=== PATIENT | male | born 1965 | race Caucasian/White ===

== ENCOUNTER 2018-08-28 21:47 | Inpatient (IN) ==
[2018-08-28] MEDS ORDERED: NS 1,000 ML IV ONE (21:51)
[2018-08-28] MEDS ORDERED: MORPHINE IV ONE ×2 (21:51→22:29)
[2018-08-28] MEDS ORDERED: ZOFRAN IV ONE (21:51)
[2018-08-28] MEDS ORDERED: NS 1,000 ML ONE (21:53)
[2018-08-28 22:04] LABS: BASO# 0.02 X1000 (0.0-0.2); BASO% 0.1 % (0.0-0.8); EOS# 0.03 X1000 (0.0-0.7); EOS% 0.2 % (0.0-10.0); HEMATOCRIT 41.8 % (42.0-52.0); IMM GRAN# 0.03 X1000 (0.0-0.04); IMM GRAN% 0.2 % (0.0-0.5); LYMPH# 1.53 X1000 (1.2-3.4); MCH 28.6 PG (27-31); MCHC 33.5 g/dL (33-37); MCV 85.5 FL (81-99); MONO% 5.9 % (1.7-9.3); MPV 9.8 FL (7.4-10.4); NEUT# 12.73 X1000 (1.4-6.5); NEUT% 83.6 % (42.2-75.2); PLT 330 X1000 (130-400); RBC 4.89 XMIL (4.7-6.1); RDW 12.9 % (11.5-14.5); WBC 15.24 X1000 (4.8-10.8)
--- NOTE | 2018-08-28 22:28 | Diag Imaging Result Doc PS360 ---
EXAM: CT THORAX/ABD/PELVIS W/CON HISTORY: abdominal pain, no BM for 3 weeks, severly distend TECHNIQUE: 1. CT chest with intravenous contrast 2. CT abdomen and pelvis with intravenous contrast COMPARISON: None. FINDINGS: Chest: No pleural effusions. No thoracic aortic aneurysm or dissection. No cardiomegaly. Calcified subcarinal lymph nodes and scattered granuloma. No consolidation. No bronchiectasis. Abdomen and pelvis: There is a large amount of free air within the abdomen. There is an extremely large amount of stool throughout the colon. The rectum measures over 14 cm in AP diameter and 13 cm in transverse diameter and is filled with dense stool. There is free air about the liver. There is fatty infiltration of the liver. No calcified gallstones. Normal spleen. There are fluid-filled loops of bowel adjacent to the adrenal glands. No renal masses. No hydronephrosis. No aortic aneurysm. Urinary bladder is minimally distended. IMPRESSION: Chest: No acute abnormality Abdomen and pelvis: Massive constipation and fecal impaction with perforation with free air throughout the abdomen. This report was discussed with Yoshi Marcelo in the emergency room on 08/28/2018 at 10:25 PM and was readback. This exam was performed using automated exposure control, adjustment of mA or kV according to patient size, and/or use of iterative reconstruction technique. Electronically signed by Favio Desai 08/28/2018 10:25 PM
[2018-08-28 22:29] LABS: AGAP 15; ALB/GLOB RATIO 1.4; ALKALINE PHOSPHATASE 108 U/L (32-122); BUN 9 mg/dL (8-22); CALCIUM 9.3 mg/dL (8.8-10.2); CHLORIDE 99 mmol/L (98-107); COSMO 280; CREATININE 0.8 mg/dL (0.7-1.2); ESTIMATED GFR > 60; GLUCOSE 194 mg/dL (70-104); GOT 12 U/L (10-34); GPT 12 U/L (10-44); LIPASE 14 U/L (13-60); POTASSIUM 3.8 mmol/L (3.5-5.1); SODIUM 138 mmol/L (136-145); TCO2 24 mmol/L (25-35); TOTAL BILIRUBIN 0.65 mg/dL (0.20-1.00); TOTAL PROTEIN 6.9 g/dL (6.3-8.3)
[2018-08-28] MEDS ORDERED: ZOSYN 4.5 GM in NS 100 ML IV ONE (22:29)
[2018-08-28 22:48] LABS: URINE SOURCE CATH
[2018-08-28 22:49] LABS: C REACTIVE PROT QUANT 70.07 mg/L (0.00-5.00)
[2018-08-28 23:08] LABS: BILIRUBIN URINE NEGATIVE (NEGATIVE); BLOOD URINE NEGATIVE (NEGATIVE); COLOR YELLOW; GLUCOSE URINE TRACE mg/dL (NEGATIVE); KETONE URINE 60 mg/dL (NEGATIVE); LEUKOCYTES URINE NEGATIVE (NEGATIVE); NITRITE URINE NEGATIVE (NEGATIVE); PH URINE 6.5; PROTEIN URINE TRACE mg/dL (NEGATIVE); SP GRAVITY URINE 1.041; TURBIDITY URINE CLEAR (CLEAR); UR EPITHELIAL CELLS <10 /HPF (<10); URINE BACTERIA NEGATIVE /HPF; URINE RBC <10 /HPF (<10); URINE WBC <10 /HPF (<10); UROBILINOGEN URINE 2 mg/dL (NORMAL)
[2018-08-28] MEDS ORDERED: LOPRESSOR IV ONE (23:12)
[2018-08-28] MEDS ORDERED: DILAUDID IV ONE (23:12)
[2018-08-28] MEDS ORDERED: LABETALOL IV ONE ×2 (23:28→23:45)
[2018-08-28] MEDS ORDERED: DILAUDID IV PRN (23:36)
[2018-08-28] MEDS ORDERED: LABETALOL IV PRN (23:36)
--- NOTE | 2018-08-28 23:43 | GENERAL SURGERY CONSULTATION ---
DATE: 08/28/2018 REQUESTING PHYSICIAN: ER. REASON FOR CONSULTATION: Perforated bowel. HISTORY OF PRESENT ILLNESS: A 53-year-old gentleman with a history of not having a bowel movement for about 3 weeks. By report, he has been taking methadone. He had sudden-onset worsening of the pain. He came to emergency department for that and distention. CT evaluation showed free air and severe constipation. The patient is still complaining of significant abdominal pain at this moment, essentially all over. I was asked to weigh an opinion. PAST MEDICAL HISTORY: None reported, but does have to take methadone, so at least chronic pain issues. PAST SURGICAL HISTORY: None. SOCIAL HISTORY: Current smoker. MEDICATIONS: Home medications reviewed. He takes methadone. ALLERGIES: None. FAMILY HISTORY: Reviewed with the patient, noncontributory. REVIEW OF SYSTEMS: A full 10-point review of systems was obtained and negative except as specified in HPI. PHYSICAL EXAMINATION: Vital signs: The patient is currently afebrile. He has a pulse in the 100s. Blood pressure is 200/110 systolic. General exam: male, looks stated age. Appears to be in somewhat abdominal distress. HEENT: Normocephalic, atraumatic. Pupils equal, round and reactive to light. Mucous membranes moist. Oropharynx benign. Neck supple. Trachea midline. Cardiovascular: Regular rate and rhythm. Lungs grossly clear. Abdomen significantly distended and tender to palpation. Extremities: Moves all extremities. Neurologic grossly intact. Skin: No signs of jaundice. Vascular: All extremities perfused. LABORATORY DATA: Reviewed. Of note, white blood cell count is 15, hematocrit is 41. The remainder of labs reviewed. C-reactive protein is elevated at 70. DIAGNOSTIC DATA: CT scan independently reviewed and radiology report reviewed. He does have significant distention and free air, and significant stool burden. ASSESSMENT AND PLAN: A 53-year-old with perforated bowel. 1. Perforated bowel. At this time, given his severe constipation it is likely related to pressure from this. He has peritonitis on exam. We will need to take him to the operating room. I do not know how much bowel we will have to remove, but I do believe we will have to remove some degree of his colon. I discussed that he will likely have to have an ostomy. This was all discussed with the patient and the family, discussing the risks, benefits and alternatives of the procedure. Risks including, but not limited to, bleeding, infection, risk of anesthesia, risk of injuring other structures and need for the colostomy were all discussed. We will schedule for tonight. We will get the emergency room to do antibiotics. 2. Hypertension. At this time, likely related to underlying process, but we will get the hospitalist to admit. cc: Jairo Noriega MD
[2018-08-28] MEDS ORDERED: NS 1,000 ML IV SCH (23:45)
[2018-08-28] MEDS ORDERED: XYLOCAINE-MPF 2% ONE (23:54)
[2018-08-28] MEDS ORDERED: FENTANYL ONE (23:54)
[2018-08-28] MEDS ORDERED: VERSED ONE (23:54)
[2018-08-28] MEDS ORDERED: QUELICIN (DOSE) ONE (23:55)
[2018-08-28] MEDS ORDERED: DIPRIVAN 1% ONE (23:55)
[2018-08-29] MEDS ORDERED: NORCURON ONE ×2 (00:03→01:36)
[2018-08-29] MEDS ORDERED: LEVOPHED 8 MG in D5 1/2 NS 250 ML IV SCH (00:15)
[2018-08-29 00:22] LABS: CHOLESTEROL 117 mg/dL (0-200); HDL 46 mg/dL (35-55); LDL 57 mg/dL; TRIGLYCERIDES 70 mg/dL (39-160); VLDL 14 mg/dL
[2018-08-29] MEDS ORDERED: EPHEDRINE ONE (01:57)
[2018-08-29] MEDS ORDERED: MORPHINE ONE (03:15)
[2018-08-29] MEDS ORDERED: ROBINUL ONE (03:19)
[2018-08-29] MEDS ORDERED: NEOSTIGMINE ONE (03:19)
[2018-08-29] MEDS ORDERED: ZOSYN 4.5 GM in NS 100 ML IV SCH ×2 (04:00→10:00)
[2018-08-29] MEDS ORDERED: SODIUM CHLORIDE 0.9% INJ SCH (04:25)
[2018-08-29] MEDS ORDERED: PROTONIX IV SCH (04:25)
[2018-08-29] MEDS ORDERED: BENADRYL IV PRN (04:45)
[2018-08-29] MEDS ORDERED: ZOFRAN IV PRN (04:45)
[2018-08-29] MEDS ORDERED: NARCAN IV PRN (04:45)
[2018-08-29] MEDS: DILAUDID-HP 30 MG in NS 27 ML IV PRN ×2 (05:35→17:02)
[2018-08-29] MEDS: LR 1,000 ML IV SCH ×5 (05:51→18:21)
--- NOTE | 2018-08-29 05:59 | HISTORY AND PHYSICAL ---
CHIEF COMPLAINT: Abdominal pain. HISTORY OF PRESENT ILLNESS: This is a 53-year-old male who has no real past medical history other than opioid dependence. He takes methadone. Apparently he has not had a bowel movement from anywhere from 3 weeks to a month. He had sudden onset of worsening pain tonight so he came into the emergency room. CT evaluation shows free air and severe constipation. Dr. Noriega, has been consulted and he will take him emergently to the OR. He will then be admitted to the intensive care unit for further evaluation and treatment. PAST MEDICAL HISTORY: See HPI. PREVIOUS SURGICAL HISTORY: Hip repair. SOCIAL HISTORY: Smokes 1 pack of cigarettes per day. No alcohol and no illicit drugs. He is . FAMILY HISTORY: Positive for coronary artery disease and breast cancer in first-degree relatives. ALLERGIES: No known drug allergies. HOME MEDICATIONS: Methadone, unsure of dosage. REVIEW OF SYSTEMS: Fourteen-point review of systems conducted with the patient. Pertinent positives listed above in the HPI. Other pertinent positives include hematochezia, nausea, no vomiting. All other systems reviewed and found to be negative. PHYSICAL EXAMINATION: VITAL SIGNS: Temperature 99, pulse 100, respirations 20, blood pressure 200/130, oxygen saturation 91% on 2 L nasal cannula. GENERAL: A 53-year-old male lying in the ER stretcher. Stomach is clearly distended. He is in pain. HEENT: Head is atraumatic, normocephalic. Pupils equal, round, reactive to light. Extraocular eye movements intact. Sclerae are anicteric. Conjunctiva are pink. Oral mucosa is moist. NECK: Supple. No JVD. No thyromegaly. Trachea is midline. No cervical lymphadenopathy. CARDIAC: S1, S2 appreciated. No murmurs, gallops, or rubs. Tachycardic. LUNGS: Decreased bilaterally. No rhonchi, wheezes or rales. Symmetric rise and fall with respirations. ABDOMEN: Protuberant, firm and distended. Bowel sounds are not present on auscultation. Diffusely tender to palpation. EXTREMITIES: No clubbing, cyanosis, or edema. Decreased pedal pulses bilaterally. GENITOURINARY: No bladder distention. Norton catheter will be placed. NEUROLOGICAL: Alert and oriented times 3. No focal or motor deficits are noted. Otherwise nonfocal examination. DIAGNOSTIC DATA: CT shows free air in the abdomen and massive constipation and fecal impaction. LABORATORY DATA: WBC 15.24, hemoglobin 14, hematocrit 41.8, platelet count 330,000. Coagulations are pending. Chemistry within normal limits other than a glucose of 194. Urine unremarkable. ASSESSMENT AND PLAN: 1. Massive constipation with perforated bowel. Dr. Noriega, has been consulted and will take the patient emergently to the operating room. He was given Zosyn in the emergency room. Will continue this, 4.5 g IV q.6 hours, Dilaudid 2 mg IV q.3-4 hours as needed for pain, and Zofran as needed for nausea. 2. Nausea. See above. 3. Chronic pain syndrome with chronic methadone use. Aware. 4. Hyperglycemia. Check hemoglobin A1c. 5. Further recommendations per the patient's clinical course. Dictated by SANA Simmons for Juan Pablo Lazo MD cc: SANA Simmons MD Matthew L. Figh, MD Independent exam done by me showed distended abd. with rebound tenderness and guarding. No BS heard. Pt will be given IV Labetalol to control BP. He is undergoing emergency surgery and will be covered with Zosyn. Concerned that he may become septic. Levophed on standby post op. MTDD
[2018-08-29 06:32] LABS: BASO# 0.01 X1000 (0.0-0.2); BASO% 0.1 % (0.0-0.8); HEMATOCRIT 37.1 % (42.0-52.0); HEMOGLOBIN 12.2 g/dL (14.0-18.0); IMM GRAN# 0.02 X1000 (0.0-0.04); IMM GRAN% 0.1 % (0.0-0.5); LYMPH# 0.84 X1000 (1.2-3.4); LYMPH% 6.2 % (20.5-51.1); MCH 28.4 PG (27-31); MCHC 32.9 g/dL (33-37); MCV 86.5 FL (81-99); MONO# 0.61 X1000 (0.11-0.59); MONO% 4.5 % (1.7-9.3); NEUT# 12.06 X1000 (1.4-6.5); NEUT% 89.1 % (42.2-75.2); PLT 279 X1000 (130-400); RBC 4.29 XMIL (4.7-6.1); RDW 12.9 % (11.5-14.5); WBC 13.54 X1000 (4.8-10.8)
[2018-08-29 06:36] LABS: INR 1.22; PROTIME 16.4 Seconds (11.0-16.0)
[2018-08-29] MEDS: PEPCID IV SCH ×2 (06:36→16:41)
[2018-08-29] MEDS: HEPARIN SUBQ SCH ×3 (06:36→21:55)
[2018-08-29] MEDS: APRESOLINE IV PRN (06:36)
[2018-08-29 06:37] LABS: PTT 32.6 Seconds (22.3-41.8)
[2018-08-29 06:45] LABS: HEMOGLOBIN A1C 5.1 % (4.8-6.0)
--- NOTE | 2018-08-29 07:06 | OPERATIVE NOTE ---
PROCEDURE DATE: 08/29/2018 PREOPERATIVE DIAGNOSIS: Perforated bowel with pneumoperitoneum. POSTOPERATIVE DIAGNOSIS: Perforated bowel secondary to severe constipation and colonic dysmotility/inertia. PROCEDURES PERFORMED: 1. Exploratory laparotomy. 2. Open total abdominal colectomy with end ileostomy. SURGEON: Dr. Jairo Noriega. HOME APPLIANCE INSTALLER: None. ANESTHESIA: General endotracheal. FINDINGS: Perforation noted in the sigmoid colon. Severe constipation with essentially concrete in the rectum. The whole entire colon was distended. The patient had a competent ileocecal valve so there was no small-bowel dilation but there was stool throughout the entirety of the colon with severe constipation and significant colonic dysmotility. COMPLICATIONS: None at the time of this dictation. ESTIMATED BLOOD LOSS: 200 mL. SPECIMENS REMOVED: Colon. DRAINS: Two round 19-Amharic drains. BRIEF HISTORY: A 53-year-old gentleman who presented with abdominal pain. He had not had a bowel movement in 3 weeks. He had a CT scan that showed free air. We took him emergently to the operating room. It should be noted that he was on methadone for chronic pain management. We discussed with him the risks, benefits, and alternatives for the procedure. Risks including but not limited to bleeding, infection, risk of ostomy, risk of damage to other organs were discussed. All questions were answered. DESCRIPTION OF PROCEDURE: After informed consent was obtained, the patient was brought to the operative theatre, transferred to the operating table, and placed in the supine position. General endotracheal anesthesia was then performed without complication. A formal time-out was then performed, confirming patient, date, and procedure. All were in agreement. At that time, attention was given to the abdomen. The abdomen was prepped and draped. His abdomen was very protuberant. After we prepped and draped, and did a time-out, we made a standard midline incision. Upon entering the abdomen, we released air. There was a significant amount of contamination consistent with perforated hollow viscus. We encountered severely dilated bowel. The first piece of intestine that we encountered was the sigmoid colon. It was essentially rock- solid. The entirety of the colon was distended with the cecum being over 11 cm. Given this, the difficulty with mobilizing just one isolated area and the concern that he might perforate still with his colonic dysmotility, I elected to do a subtotal colectomy. We started on the right side at the cecum, mobilized it from the white line of Toldt all the way up to the hepatic flexure. We then transected the terminal ileum, used the LigaSure to take down the mesentery, turned it all the way around the hepatic flexure, brought it up down the transverse colon using the LigaSure in the mesentery, preserving the omentum as best we could. We then brought it around the splenic flexure. After mobilizing the splenic flexure, brought down the descending colon. He had a very redundant sigmoid colon and, again, had a perforation in the sigmoid colon. We came down to the rectum. The rectum was essentially concrete and was over 20 cm in diameter, not amenable to using the stapler. We essentially had to open up the colon and do a disimpaction of the rectum. Once we had done this, we finished coming across the rectum with a scalpel. Given the redundancy and the length of it, it was too large to actually used a TA stapler. I closed the rectal stump in layers using a running Vicryl stitch and imbricated silk stitches. The tissue was very friable but we were able to close it. We dunked it down into the pelvis. I then mobilized the terminal ileum. It was amenable to an ileostomy. We irrigated out the abdomen copiously until the suction fluid was clear. It should again be noted that we took down the whole colon all the way down to the peritoneal reflection and ligated the vessels with high ligation with the LigaSure. I did not see any signs of the ureters but we stayed very superficial to this. I did not see any other injury to any other major anatomic structure. Once we had done this, we irrigated out the abdomen. We placed two drains on either side of the rectal stump to monitor the area in case there were any issues with healing of the rectal stump. We secured these in place. We then made a spot at the lateral edge of the rectus sheath on the right lower quadrant for the ileostomy and brought it out. We then irrigated out the abdomen, closed the fascia with a running loop PDS, loosely stapled the skin shut, and then matured the ostomy and had an ostomy appliance. The patient tolerated the procedure well. He will be transferred back to the ICU to be monitored. cc: Jairo Noriega MD
[2018-08-29 07:16] LABS: AGAP 13; BUN 8 mg/dL (8-22); CALCIUM 7.9 mg/dL (8.8-10.2); CHLORIDE 101 mmol/L (98-107); COSMO 280; CREATININE 0.6 mg/dL (0.7-1.2); ESTIMATED GFR > 60; GLUCOSE 247 mg/dL (70-104); POTASSIUM 3.9 mmol/L (3.5-5.1); SODIUM 137 mmol/L (136-145); TCO2 23 mmol/L (25-35)
--- NOTE | 2018-08-29 08:35 | PROGRESS NOTE ---
DATE: 08/29/2018 SUBJECTIVE: This patient is resting in bed. As per the patient, the pain is a little bit better. He is on a pain pump. He is status post exploratory laparotomy with open total abdominal colectomy with end ileostomy. This patient has an NG tube. We will continue with the same management. We will follow surgery recommendations. OBJECTIVE: Vital Signs: Temperature 99 degrees, pulse 90, respiratory rate 20, blood pressure 165/103, oxygen saturation 99. HEENT: Head normocephalic. No trauma. PERRLA. Neck: Supple. No JVD. No masses. Central trachea. Chest: Clear to auscultation. No wheezing. No rales. Abdomen: Slightly distended. He does have a dressing that looks clean and dry. He has a drain that has some serosanguineous discharge. No bowel sounds. Ileostomy on the right side and looks fine. Laboratory: WBC 13.5, hemoglobin 12.2, hematocrit 37.1, platelets 279,000. Sodium 137, potassium 3.9, chloride 101, bicarbonate 23, BUN 8, creatinine 0.6, glucose 247, calcium 7.9. ASSESSMENT AND PLAN: 1. Perforated bowel secondary to severe constipation and colonic dysmotility/inertia, status post exploratory laparotomy with open total abdominal colectomy and end ileostomy. This patient has been placed on a LOADING UNIT OPERATOR CRIMPING pump. The pain is a little bit better controlled. Nasogastric tube in place. Abdomen is a little bit distended. No bowel sounds. The drain is working. Ileostomy looks good and the dressing is clean. He is completely alert and oriented x3. We will continue with the same management for now. 2. Chronic pain syndrome with chronic methadone use, aware. For now, we will continue with the same pain management. 3. Hyperglycemia. This patient's hemoglobin A1c is 5.1. We will just monitor for now. 4. Tobacco abuse. This patient has been highly advised against tobacco use. I will continue with daily cessation education. cc: Ernie Jimenez MD
--- NOTE | 2018-08-29 09:04 | EKG Report ---
Test Performed on : 08/29/2018 08:59:08 AM Test Reason : chest pain Blood Pressure : / mmHG Vent. Rate : 100 BPM Atrial Rate : 100 BPM P-R Int : 166 ms QRS Dur : 100 ms QT Int : 378 ms P-R-T Axes : 050 -61 052 degrees QTc Int : 487 ms Normal sinus rhythm. Left axis deviation Pulmonary disease pattern Prolonged QT Abnormal ECG No previous ECGs available Unconfirmed Result
[2018-08-29] MEDS: ZOSYN 3.375 GM in NS 50 ML IV SCH ×3 (09:51→21:55)
[2018-08-29] MEDS ORDERED: BLISTEX MEDICATED BERRY LIP BALM TOP PRN (21:14)
[2018-08-29] MEDS: ZOFRAN IV PRN (23:38)
[2018-08-30] MEDS: LR 1,000 ML IV SCH (02:24)
[2018-08-30] MEDS: ZOSYN 3.375 GM in NS 50 ML IV SCH ×4 (03:24→21:12)
[2018-08-30] MEDS: HEPARIN SUBQ SCH ×3 (04:38→21:12)
[2018-08-30] MEDS: PEPCID IV SCH ×2 (04:38→16:39)
--- NOTE | 2018-08-30 06:16 | GENERAL SURGERY PROGRESS NOTE ---
DATE: 08/30/2018 SUBJECTIVE: The patient seems to be doing well. He did have a low-grade fever, but otherwise has been doing okay. OBJECTIVE: Vital Signs: The patient's current temperature is 100.2. The remainder of the vital signs have been stable. General: No acute distress. Resting comfortably. Cardiovascular: Regular rate and rhythm. Lungs: Grossly clear. Abdomen: Soft, appropriately tender. Ileostomy appears viable, only serosanguineous fluid in the appliance. ASSESSMENT AND PLAN: A 53-year-old status post exploratory laparotomy and total abdominal colectomy, currently postoperative day #1. Postoperative state. At this time, we will continue decompression. I imagine he is going to have some degree of an ileus. Given the fact that he came in with obstruction we will need to monitor him closely. From a surgical point of view, I think he can get out of the ICU and go to the floor. If he does not seem to have good return of function in the next couple of days may need to consider PICC line and TPN, but otherwise we will continue to monitor him. cc: Jairo Noriega MD
[2018-08-30] MEDS ORDERED: OFIRMEV 1000 MG/ISOTONIC SOLN 1,000 MG/100 ML BOTTLE IV PRN (07:44)
[2018-08-30 07:58] LABS: BASO# 0.01 X1000 (0.0-0.2); BASO% 0.1 % (0.0-0.8); EOS# 0.02 X1000 (0.0-0.7); EOS% 0.2 % (0.0-10.0); HEMATOCRIT 31.3 % (42.0-52.0); HEMOGLOBIN 10.2 g/dL (14.0-18.0); IMM GRAN# 0.02 X1000 (0.0-0.04); IMM GRAN% 0.2 % (0.0-0.5); LYMPH# 1.22 X1000 (1.2-3.4); LYMPH% 9.8 % (20.5-51.1); MCH 28.5 PG (27-31); MCHC 32.6 g/dL (33-37); MCV 87.4 FL (81-99); MONO# 0.79 X1000 (0.11-0.59); MONO% 6.4 % (1.7-9.3); MPV 9.9 FL (7.4-10.4); NEUT# 10.33 X1000 (1.4-6.5); NEUT% 83.3 % (42.2-75.2); PLT 266 X1000 (130-400); RBC 3.58 XMIL (4.7-6.1); WBC 12.39 X1000 (4.8-10.8)
--- NOTE | 2018-08-30 08:08 | PROGRESS NOTE ---
DATE: 08/30/2018 SUBJECTIVE: This patient is resting comfortably in bed. He is still complaining of abdominal pain. He is on a VERTICAL LATHE OPERATOR pump. He is status post exploratory laparotomy with open total abdominal colectomy and end ileostomy. No bowel sounds. I will stop the lactate Ringer, and I will put this patient on Clinimix and normal saline probably in 1 or 2 days if the bowel function still decreases. Will likely need to place a PICC line and start TPN. This has been recommended by Surgery Department. OBJECTIVE: Vital Signs: Temperature 100.2 degrees, pulse 79, respiratory rate 17, blood pressure 139/82, oxygen saturation 98 on 3 L of nasal cannula HEENT: Head normocephalic. No trauma. PERRLA. Neck: Supple. No JVD. No masses. Central trachea. Chest: Clear to auscultation. No wheezing. No rales. Abdomen: Soft. Slightly distended. He does have a dressing that looks clean and dry. Drain that has some serosanguineous discharge. Ileostomy on the right side that looks stable/working. Extremities: No edema. No clubbing. No cyanosis. Neurological examination: The patient is completely alert and oriented x3. No focal deficits. LABORATORY: Pending lab work at this point. ASSESSMENT AND PLAN: 1. Perforated bowel secondary to severe constipation and colonic dysmotility/inertia. 2. Status post exploratory laparotomy with open total abdominal colectomy and end ileostomy postoperative day #1. Continue with VERTICAL LATHE OPERATOR pump. Nasogastric tube in place. I will start this patient on Clinimix. No bowel sounds. We will follow the recommendations of Surgery Department. 3. Chronic pain syndrome with chronic methadone use, aware. For now, we will continue with the same pain management since he has a colectomy. 4. Hyperglycemia. This patient's hemoglobin A1c is 5.1. We will just monitor for now. 5. Tobacco abuse. This patient has been highly advised against tobacco use. I will continue with daily cessation education. Patient seems to be stable. I will try to transfer this patient to the medical floor. cc: Ernie Jimenez MD
[2018-08-30 08:17] LABS: AGAP 8; ALB/GLOB RATIO 0.9; ALBUMIN 2.3 g/dL (3.5-5.0); ALKALINE PHOSPHATASE 65 U/L (32-122); BUN 10 mg/dL (8-22); CALCIUM 8.4 mg/dL (8.8-10.2); CHLORIDE 101 mmol/L (98-107); COSMO 277; CREATININE 0.6 mg/dL (0.7-1.2); ESTIMATED GFR > 60; GLUCOSE 133 mg/dL (70-104); GOT 7 U/L (10-34); GPT 6 U/L (10-44); SODIUM 138 mmol/L (136-145); TCO2 29 mmol/L (25-35); TOTAL BILIRUBIN 0.35 mg/dL (0.20-1.00); TOTAL PROTEIN 4.9 g/dL (6.3-8.3)
[2018-08-30] MEDS: NS 1,000 ML IV SCH ×3 (09:02→16:40)
[2018-08-30] MEDS: CLINIMIX E 4.25%-5% SOLUTION 1,000 ML IV SCH ×2 (09:02→18:32)
[2018-08-30] MEDS: APRESOLINE IV PRN (17:22)
[2018-08-30] MEDS: ZOFRAN IV PRN (18:36)
[2018-08-30] MEDS: DILAUDID-HP 30 MG in NS 27 ML IV PRN (21:31)
[2018-08-31] MEDS: NS 1,000 ML IV SCH ×3 (01:10→12:00)
[2018-08-31] MEDS: CLINIMIX E 4.25%-5% SOLUTION 1,000 ML IV SCH ×4 (03:49→19:47)
[2018-08-31] MEDS: PHENERGAN IV PRN ×2 (04:27→11:15)
[2018-08-31] MEDS: ZOSYN 3.375 GM in NS 50 ML IV SCH ×4 (04:28→22:26)
[2018-08-31] MEDS: SODIUM CHLORIDE 0.9% INJ PRN (04:28)
[2018-08-31] MEDS: HEPARIN SUBQ SCH ×3 (04:29→22:26)
[2018-08-31] MEDS: ZOFRAN IV PRN ×2 (04:33→22:32)
[2018-08-31] MEDS: PEPCID IV SCH ×3 (05:30→19:02)
--- NOTE | 2018-08-31 06:15 | GENERAL SURGERY PROGRESS NOTE ---
DATE: 08/31/2018 SUBJECTIVE: Patient transferred up from the ICU. He is doing well. His pain seems to be better controlled. He is a little bit sick to his stomach. His ostomy has not had much output. OBJECTIVE: Vital Signs: Patient is currently afebrile. His vital signs are stable. General: No acute distress. Cardiovascular: Regular rate and rhythm. Lungs: Grossly clear. Abdomen: Soft, appropriately tender. Ostomy is viable. ASSESSMENT AND PLAN: A 53-year-old postop day #2 from total abdominal colectomy. Postoperative state. At this time, we will await return of bowel function. I suspect he will have some degree of prolonged postoperative ileus given the situation for which he came in. We will try to keep his pain controlled. Try to ambulate today and will monitor him closely. cc: Jairo Noriega MD
[2018-08-31 06:38] LABS: BASO# 0.01 X1000 (0.0-0.2); BASO% 0.1 % (0.0-0.8); EOS# 0.11 X1000 (0.0-0.7); EOS% 1.3 % (0.0-10.0); HEMATOCRIT 27.7 % (42.0-52.0); HEMOGLOBIN 8.8 g/dL (14.0-18.0); LYMPH# 1.08 X1000 (1.2-3.4); LYMPH% 12.3 % (20.5-51.1); MCH 28.3 PG (27-31); MCHC 31.8 g/dL (33-37); MCV 89.1 FL (81-99); MONO# 0.51 X1000 (0.11-0.59); MONO% 5.8 % (1.7-9.3); MPV 9.8 FL (7.4-10.4); NEUT# 7.09 X1000 (1.4-6.5); NEUT% 80.5 % (42.2-75.2); PLT 221 X1000 (130-400); RBC 3.11 XMIL (4.7-6.1)
--- NOTE | 2018-08-31 07:11 | Diag Imaging Result Doc PS360 ---
EXAM: CHEST-PORTABLE 08/31/2018 HISTORY: dyspnea TECHNIQUE: AP portable at 0555 COMMENT: There is an NG tube which passes below the diaphragm. There is retrocardiac opacity. There are no previous studies available for comparison. IMPRESSION: Atelectasis versus pneumonia left lower lobe. Electronically signed by Aldo Carrion 08/31/2018 7:09 AM
[2018-08-31 07:16] LABS: AGAP 8; ALB/GLOB RATIO 0.7; ALBUMIN 2.1 g/dL (3.5-5.0); ALKALINE PHOSPHATASE 60 U/L (32-122); BUN 11 mg/dL (8-22); CALCIUM 7.8 mg/dL (8.8-10.2); CHLORIDE 104 mmol/L (98-107); COSMO 279; CREATININE 0.7 mg/dL (0.7-1.2); ESTIMATED GFR > 60; GLUCOSE 105 mg/dL (70-104); GOT 6 U/L (10-34); GPT 5 U/L (10-44); POTASSIUM 3.9 mmol/L (3.5-5.1); SODIUM 140 mmol/L (136-145); TCO2 28 mmol/L (25-35); TOTAL BILIRUBIN 0.24 mg/dL (0.20-1.00)
[2018-08-31 12:53] LABS: INR 1.24; PROTIME 16.6 Seconds (11.0-16.0)
[2018-08-31] MEDS ORDERED: NS 250 ML ONE (12:59)
--- NOTE | 2018-08-31 16:40 | PROGRESS NOTE ---
DATE: 08/31/2018 SUBJECTIVE: This patient is resting in bed. He is still complaining of abdominal pain. He is on a CHURCH COMMUNICATIONS ADMINISTRATOR pump. He was sleepy when I evaluated this patient. I told him that probably we need to put a new line and start TPN, but then we tried to do it and he refused the PICC line for now. It looks like he will think about it during the weekend. For now, we will continue with Clinimix and we will continue with a little bit of fluids. OBJECTIVE: Vital Signs: Temperature 97.9 degrees, pulse 68, respiratory rate 18, blood pressure 142/78, oxygen saturation 96 on room air. HEENT: Head normocephalic. No trauma. PERRLA. Neck: Supple. No JVD. No masses. Central trachea. Chest: Clear to auscultation. No wheezing. No rales. Abdomen: Soft, slightly distended, no bowel sounds. He does have a dressing that looks clean, dry, and intact. No changes compared with yesterday. Ileostomy on the right side that looks stable. Extremities: No edema, no clubbing, no cyanosis. Neurological examination: At this moment, this patient is sleepy, but arousable. He is answering some of my questions and he is falling right back to sleep. LABORATORY: WBC 8.8, hemoglobin 8.8, hematocrit 27.7, platelets 221. Sodium 140, potassium 3.9, chloride 104, bicarbonate 28. BUN 11, creatinine 0.7, glucose 105, calcium 7.8, albumin 2.1. ASSESSMENT AND PLAN: 1. Perforated bowel secondary to severe constipation and colonic dysmotility/inertia, status post exploratory laparotomy with open total abdominal colectomy and end ileostomy, postoperative day #2. Continue with CHURCH COMMUNICATIONS ADMINISTRATOR pump. We tried to put a PICC line today so we can start this patient on tPA. I believe probably this patient will be having an ileus for a little bit since he has been getting narcotics and he is a chronic methadone user. 2. Chronic pain syndrome with chronic methadone use, aware as per #1. For now we will continue with the same management since he has a total colectomy. 3. Hyperglycemia. This patient's hemoglobin A1c 5.1. We will just continue to monitor. 4. Tobacco abuse. This patient has been highly advised against tobacco use. I will continue with daily cessation education. 5. Anemia, normocytic. Likely a combination of blood loss and dilutional. We will continue to monitor and we will transfuse as needed. 6. Leukocytosis resolved. cc: Ernie Jimenez MD
[2018-08-31] MEDS: DILAUDID-HP 30 MG in NS 27 ML IV PRN (18:57)
[2018-08-31] MEDS: LIPOSYN 20% 250 ML IV SCH (19:01)
[2018-09-01] MEDS: CLINIMIX E 4.25%-5% SOLUTION 1,000 ML IV SCH ×3 (00:58→16:02)
[2018-09-01] MEDS: ZOSYN 3.375 GM in NS 50 ML IV SCH ×4 (04:42→23:16)
[2018-09-01] MEDS: PEPCID IV SCH ×2 (04:43→16:03)
[2018-09-01] MEDS: HEPARIN SUBQ SCH ×3 (04:43→23:19)
[2018-09-01] MEDS: SODIUM CHLORIDE 0.9% INJ PRN (04:43)
[2018-09-01 06:42] LABS: BASO# 0.01 X1000 (0.0-0.2); BASO% 0.2 % (0.0-0.8); EOS# 0.22 X1000 (0.0-0.7); EOS% 3.5 % (0.0-10.0); HEMATOCRIT 27.1 % (42.0-52.0); HEMOGLOBIN 8.5 g/dL (14.0-18.0); LYMPH# 1.22 X1000 (1.2-3.4); LYMPH% 19.5 % (20.5-51.1); MCH 28.1 PG (27-31); MCHC 31.4 g/dL (33-37); MCV 89.4 FL (81-99); MONO# 0.45 X1000 (0.11-0.59); MONO% 7.2 % (1.7-9.3); MPV 9.5 FL (7.4-10.4); NEUT# 4.37 X1000 (1.4-6.5); NEUT% 69.6 % (42.2-75.2); PLT 239 X1000 (130-400); RBC 3.03 XMIL (4.7-6.1); RDW 12.6 % (11.5-14.5); WBC 6.27 X1000 (4.8-10.8)
[2018-09-01 07:02] LABS: AGAP 10; ALB/GLOB RATIO 0.7; ALBUMIN 2.2 g/dL (3.5-5.0); ALKALINE PHOSPHATASE 55 U/L (32-122); BUN 13 mg/dL (8-22); CALCIUM 8.3 mg/dL (8.8-10.2); CHLORIDE 100 mmol/L (98-107); COSMO 279; CREATININE 0.6 mg/dL (0.7-1.2); ESTIMATED GFR > 60; GLUCOSE 98 mg/dL (70-104); GOT 6 U/L (10-34); GPT 5 U/L (10-44); MAGNESIUM 2.1 mg/dL (1.5-2.7); PHOSPHORUS 4.3 mg/dL (2.7-4.5); POTASSIUM 3.8 mmol/L (3.5-5.1); SODIUM 140 mmol/L (136-145); TCO2 30 mmol/L (25-35); TOTAL BILIRUBIN 0.28 mg/dL (0.20-1.00); TOTAL PROTEIN 5.4 g/dL (6.3-8.3)
--- NOTE | 2018-09-01 14:28 | PROGRESS NOTE ---
DATE: 09/01/2018 SUBJECTIVE: Patient is resting comfortably in bed. He is still complaining of abdominal pain. He is still on a COSMETOLOGY TEACHER pump. He is more awake. He is oriented x3. He is still having a large output coming out from the NG tube, negative bowel sounds, I have requested a PICC line and start this patient on TPN. OBJECTIVE: Vital Signs: Temperature 98.2 degrees, pulse 71, respiratory rate 14, blood pressure 150/71, oxygen saturation 99 on 2 L of nasal cannula. HEENT: Head normocephalic. No trauma. PERRLA. Neck: Supple. No JVD. No masses. Central trachea. Chest: Clear to auscultation. No wheezing. No rales. Abdomen: Soft, slightly distended, no bowel sounds. Dressing looks clean, no changes compared with yesterday. Ileostomy on the right side and looks stable. Extremities: No edema, no clubbing, no cyanosis. Neurological: The patient is alert and oriented x3. No focal deficits. LABORATORY: WBC 6.2, hemoglobin 9.5, hematocrit 27.1, platelets 239,000. Sodium 140, potassium 3.8, chloride 100, bicarbonate 30, BUN 13, creatinine 0.6, glucose 98, calcium 8.3, magnesium 2.1, albumin 2.2. ASSESSMENT AND PLAN: 1. Perforated bowel secondary to severe constipation and colonic dysmotility/inertia status post exploratory laparotomy with open total abdominal colectomy and end ileostomy postoperative day #3. Continue with COSMETOLOGY TEACHER pump. We are going to place PICC line and hopefully start TPN on this patient, I do believe he is going to regain his bowel function in the future but is going to take some time. 2. Chronic pain syndrome with chronic methadone use, aware, as per #1. We will continue with the same management since this patient has a total colectomy. 3. Hyperglycemia with a hemoglobin A1c of 5.1. We will just continue to monitor. Blood glucose today is normal. 4. Tobacco use. This patient has been highly advised against tobacco use, I will continue with daily cessation education. 5. Normocytic anemia likely a combination of blood loss and dilutional anemia, will continue to monitor. We will transfuse as needed. 6. Leukocytosis resolved. cc: Ernie Jimenez MD
[2018-09-01] MEDS: NS 1,000 ML IV SCH (16:02)
[2018-09-01] MEDS: ZOFRAN IV PRN (16:02)
--- NOTE | 2018-09-01 17:23 | GENERAL SURGERY PROGRESS NOTE ---
DATE: 09/01/2018 Mr. Tillman is now 4 days after his abdominal colectomy with an end ileostomy. He is afebrile, heart rate 67, blood pressure 149/77. Lungs sound clear. His abdomen is somewhat distended. Bowel sounds are hypoactive. No evidence of fluid or air within his ileostomy bag. His wound is covered. He denies any calf pain. LABS: White count 6300, hemoglobin 8.5, hematocrit 27. Chemistry is okay. ASSESSMENT: Ileus persists. His bowels have not awakened yet. There is no evidence of leak from the rectal stump. White count is now normal. He will continue with IV nutrition until his ileus resolved. Will continue with NG suction for now. Will check his labs again tomorrow. cc: eClestine Griffin MD
[2018-09-01] MEDS: LIPOSYN 20% 250 ML IV SCH (18:00)
[2018-09-01] MEDS: DILAUDID-HP 30 MG in NS 27 ML IV PRN (18:11)
[2018-09-01] MEDS: PHENERGAN IV PRN (19:43)
[2018-09-02] MEDS: CLINIMIX E 4.25%-5% SOLUTION 1,000 ML IV SCH ×3 (02:53→16:50)
[2018-09-02] MEDS: SODIUM CHLORIDE 0.9% INJ PRN ×2 (02:54→05:31)
[2018-09-02] MEDS: PHENERGAN IV PRN (02:54)
[2018-09-02] MEDS: PERIDEX MT SCH ×3 (03:38→23:25)
[2018-09-02] MEDS: PEPCID IV SCH ×2 (05:31→16:49)
[2018-09-02] MEDS: HEPARIN SUBQ SCH ×3 (05:31→23:25)
[2018-09-02] MEDS: ZOSYN 3.375 GM in NS 50 ML IV SCH ×4 (05:31→23:24)
[2018-09-02 06:56] LABS: BASO# 0.01 X1000 (0.0-0.2); BASO% 0.2 % (0.0-0.8); EOS# 0.22 X1000 (0.0-0.7); EOS% 3.8 % (0.0-10.0); HEMATOCRIT 25.4 % (42.0-52.0); LYMPH# 1.17 X1000 (1.2-3.4); LYMPH% 20.5 % (20.5-51.1); MCH 27.7 PG (27-31); MCHC 31.5 g/dL (33-37); MCV 87.9 FL (81-99); MONO# 0.55 X1000 (0.11-0.59); MONO% 9.6 % (1.7-9.3); MPV 8.9 FL (7.4-10.4); NEUT# 3.77 X1000 (1.4-6.5); NEUT% 65.9 % (42.2-75.2); PLT 268 X1000 (130-400); RBC 2.89 XMIL (4.7-6.1); RDW 12.2 % (11.5-14.5); WBC 5.72 X1000 (4.8-10.8)
[2018-09-02 07:19] LABS: AGAP 11; BUN 12 mg/dL (8-22); CHLORIDE 100 mmol/L (98-107); COSMO 279; CREATININE 0.5 mg/dL (0.7-1.2); ESTIMATED GFR > 60; GLUCOSE 100 mg/dL (70-104); POTASSIUM 3.8 mmol/L (3.5-5.1); SODIUM 140 mmol/L (136-145); TCO2 29 mmol/L (25-35)
--- NOTE | 2018-09-02 08:11 | GENERAL SURGERY PROGRESS NOTE ---
DATE: 09/02/2018 SUBJECTIVE: Mr. Tillman has started putting flatus and stool into his ileostomy bag. OBJECTIVE: Vitals: His temperature is 99.1 degrees, heart rate 71, blood pressure 163/88. INPUT AND OUTPUT: Intake 3342, output 5985. LABORATORY: White count 5700, hemoglobin 8, hematocrit 25. Chemistry is fine. PLAN: The plan will be to remove his NG tube today in view of his resolving ileus. He is to get up and move around today. Perhaps we can get his Norton out by tomorrow and start him on liquids later today. cc: Celestine Griffin MD
--- NOTE | 2018-09-02 09:31 | PROGRESS NOTE ---
DATE: 09/02/2018 SUBJECTIVE: The patient is sitting at the bedside. As per the patient, he has been passing gas. Surgery department removed the NG. We have started this patient on a liquid diet. Let us see how he does. He is not having nausea or vomiting, and he had some bowel sounds, a little bit decreased though. OBJECTIVE: Vital Signs: Temperature 99.2 degrees, pulse 83, respiratory rate 18, blood pressure 155/91, oxygen saturation 96 on room air. HEENT: Head normocephalic. No trauma. PERRLA. Neck: Supple. No JVD. No masses. Central trachea. Chest: Clear to auscultation. No wheezing. No rales. Abdomen: Soft. Slightly distended but dressing looks clean. No changes compared with yesterday. Ileostomy on the right side and looks stable. Extremities: No edema, no clubbing, no cyanosis. Neurological Examination: The patient is alert and oriented x3. No focal deficits. Laboratory: WBC 5.7, hemoglobin 8, hematocrit 25.4, platelets 268,000. Sodium 140, potassium 3.8, chloride 100, bicarbonate 29, BUN 12, creatinine 0.5, glucose 100, calcium 8. ASSESSMENT AND PLAN: 1. Perforated bowel secondary to severe constipation and colonic dysmotility/inertia, status post exploratory laparotomy with open total abdominal colectomy and end ileostomy, postoperative day #4. This patient seems to be doing good. Nasogastric tube has been removed. He has been started on a liquid diet. Let us see how he does. Continue with the WEBMETHODS CONSULTANT pump. 2. Chronic pain syndrome with chronic methadone use, aware, as per #1. Continue with the same management since this patient had a total colectomy. 3. Hyperglycemia with a hemoglobin A1c of 5.1. We will just monitor for now. Blood glucose today is normal. 4. Tobacco use. This patient has been highly advised against tobacco use. I will continue with daily cessation education. 5. Normocytic anemia. We will replace as needed. 6. Leukocytosis, resolved. cc: Ernie Jimenez MD
[2018-09-02] MEDS: ZOFRAN IV PRN (10:54)
[2018-09-02] MEDS: NS 1,000 ML IV SCH (13:41)
[2018-09-02] MEDS: LIPOSYN 20% 250 ML IV SCH (18:40)
--- NOTE | 2018-09-02 19:33 | PROVIDER DOCUMENTATION ---
This chart was entered by Michelle Cruz Scribe, acting as scribe for Philip Marcelo MD. HPI-Abdominal Pain/GI Problem - General Chief Complaint: Constipation Stated Complaint: abd pain Time Seen by Provider: 08/28/18 22:00 Source: patient, EMS Allergies/Adverse Reactions: Patient Allergies Allergy/AdvReac Type Severity Reaction Status Date / Time No Known Allergies Allergy Verified 07/23/12 12:16 Home Medications: Home Medication List Medication Instructions Recorded Confirmed Last Taken Type Hydrocodone/Acetaminophen [[place] 1 each PO Q4-6H PRN PRN #20 tablet 09/07/14 Unknown Rx 5-325 Tablet] - History of Present Illness-ABD Nature of Presenting Problems: 53 yom presents to ED by EMS c/o zero BM for 3 weeks and tonight while straining to have a BM he felt a 'pop' in his belly and has been in excruciating abdominal pain since. Pt states he had blood from rectum and vomiting so he called EMS. Upon exam pt abdomen is extremely distended and his pain is a 10/10. Pt mother and son are at bedside. Abdominal Pain Onset Location: reports: generalized abdomen Pain Radiation: reports: RUQ, LUQ, RLQ, LLQ, epigastric, periumbilical Quality of Pain: reports: stabbing, tearing Severity in ED: reports: severe Onset/Duration: reports: just prior to arrival Timing: reports: still present Activities at Onset: reports: other (straining to have a BM) Exposure to sick contacts?: No Modifying Factors: improves with: nothing Associated Symptoms: reports: vomiting Last BM: other (3 weeks ago) Rectal Bleeding: reports: bleeding without stool Review of Systems - Adult - REVIEW OF SYSTEMS - ADULT Constitutional: reports: see HPI. denies: chills Eyes: reports: no symptoms reported Ears, Nose, Mouth & Throat: reports: no symptoms reported Cardiovascular: reports: no symptoms reported Respiratory: reports: no symptoms reported Gastrointestinal: reports: abdominal pain, constipation (no BM for 3 weeks), nausea, rectal bleeding, vomiting Genitourinary: reports: no symptoms reported Musculoskeletal: reports: no symptoms reported Integumentary: reports: no symptoms reported Neurological: reports: no symptoms reported Psychiatric: reports: no symptoms reported Endocrine: reports: no symptoms reported Hematologic/Lymphatic: reports: no symptoms reported Allergic/Immunologic: reports: no symptoms reported All Other Systems: Reviewed and Negative Past History - Adult - PAST MEDICAL HISTORY-ADULT Review of Records: reports: Old Records Reviewed, Nursing Assessment Review, Medications Reviewed, Social history reviewed & non-contributory. Major Childhood Illnesses: reports: denies history Cardiovascular: reports: denies history Respiratory: reports: denies history Gastrointestinal: reports: denies history Obstetrical/Gynecological: reports: denies history Genitourinary: reports: denies history Musculoskeletal: reports: denies history Neurological: reports: denies history Endocrine/Immune: reports: denies history Other Conditions: reports: denies history - IMMUNIZATION STATUS Childhood Immunizations: See Nurse Assessment Flu Vaccine: See Nurse Assessment - FAMILY HISTORY Family History: reviewed, not pertinent Physical Exam-General - PHYSICAL EXAM-ADULT Initial Vital Signs Reviewed: Yes - CONSTITUTIONAL General Appearance: severe distress - EYES Eyes: PERRL/EOMI, pink conjunctivae - HEAD, EARS, NOSE, MOUTH & THROAT HENMT: normocephalic/atraumatic, moist mucous membranes - NECK Neck: non-tender, full range of motion - RESPIRATORY Respiratory: chest non-tender, lungs clear - CARDIOVASCULAR Cardiovascular: normal peripheral pulses, regular rate, rhythm - GASTROINTESTINAL (ABDOMEN) Abdominal Exam: abnormal bowel sounds, distended, guarding, rigid, tenderness. negative: normal bowel sounds, non tender, soft - LYMPHATIC Lymphatic: no adenopathy - MUSCULOSKELETAL Back Exam: normal inspection Extremity: normal range of motion - SKIN Integumentary: normal color, normal turgor - NEUROLOGIC Neurologic: counselor aide II-XII nml as tested, grossly normal - PSYCHIATRIC Psych/Mental Status: normal mood/affect, normal thought content Progress - PLAN OF CARE/RESULTS Progress/Plan/Lab Results: Vital Signs - 8 hr 08/28/18 21:48 08/28/18 21:52 08/28/18 22:14 Temperature 99 F Pulse Rate 93 H 92 H Respiratory Rate 26 H 18 24 Blood Pressure 174/132 174/132 O2 Sat by Pulse Oximetry 91 L 08/28/18 22:20 08/28/18 22:30 Temperature Pulse Rate 93 H 100 H Respiratory Rate 20 25 H Blood Pressure O2 Sat by Pulse Oximetry 91 L 91 L Laboratory Results - last 24 hr 08/28/18 08/28/18 21:50 21:50 WBC 15.24 H RBC 4.89 Hgb 14.0 Hct 41.8 L MCV 85.5 MCH 28.6 MCHC 33.5 RDW Std Deviation 12.9 Plt Count 330 MPV 9.8 Immature Gran % (Auto) 0.2 Neut % (Auto) 83.6 H Lymph % (Auto) 10.0 L Osborne % (Auto) 5.9 Eos % (Auto) 0.2 Baso % (Auto) 0.1 Immature Gran # (Auto) 0.03 Neut # (Auto) 12.73 H Lymph # (Auto) 1.53 Osborne # (Auto) 0.90 H Eos # (Auto) 0.03 Baso # (Auto) 0.02 Sodium 138 Potassium 3.8 Chloride 99 Carbon Dioxide 24 L Anion Gap 15 BUN 9 Creatinine 0.8 Estimated GFR/1.73 m2 > 60 BUN/Creatinine Ratio 11 Glucose 194 H Calculated Osmolality 280 Calcium 9.3 Total Bilirubin 0.65 AST 12 ALT 12 Alkaline Phosphatase 108 Total Protein 6.9 Albumin 4.0 Globulin 2.9 Albumin/Globulin Ratio 1.4 Lipase 14 Orders Category Date Time Status Onrton Cath Insertion ORDERED Care 08/28/18 22:[address] THORAX/ABD/PELVIS W/CON [CT] Stat Exams 08/28/18 21:49 Completed C REACTIVE PROT QUANT [CHEM] Stat Lab 08/28/18 21:50 Results CBC WITH ELECTRONIC DIFF [HEME] Stat Lab 08/28/18 21:50 Completed COMPREHENSIVE METABOLIC PANEL [CHEM] Stat Lab 08/28/18 21:50 Results LIPASE [CHEM] Stat Lab 08/28/18 21:50 Results TYPE & SCREEN [BBK] Stat Lab 08/28/18 21:50 Received URINALYSIS W/POSS RFLX CULT [URINALYSIS] Stat Lab 08/28/18 21:52 Uncollected 0.9% Sodium Chloride Inj [Ns] 1,000 ml Med 08/28/18 21:53 Discontinued .ROUTE As directed 0.9% Sodium Chloride Inj [Ns] 1,000 ml Med 08/28/18 21:51 Active IV 999 mls/hr Morphine Med 08/28/18 21:51 Discontinued 10 mg IV NOW ONE Morphine Med 08/28/18 22:29 Discontinued 10 mg IV NOW ONE Ondansetron [Zofran] Med 08/28/18 21:51 Discontinued 8 mg IV NOW ONE Piperacillin/Tazobactam [Zosyn] 4.5 gm Med 08/28/18 22:29 Active 0.9% Sodium Chloride Inj [Ns] 100 ml IV NOW EKG [EKG] Stat Ther 08/28/18 21:52 Ordered A/P acute bowel rupture with free air, Dr noriega took pt for emergency surgery Result Diagrams: 09/02/18 06:20 09/02/18 06:20 - REASSESSMENT Reassessment #1 Time Reassessed: 23:00 Status: unchanged Reassessment #2 Time Reassessed: 23:10 Status: unchanged Reassessment Comment: Dr. Noriega at bedside, gave lopressor for b/p, 2mg dilaudid for pain Reassessment #3 Time Reassessed: 23:30 (dr hill at bedside) - CT/MRI 1 CT Study: Abdomen, Pelvis, Thorax Impression: Abnormal (IMPRESSION: Chest: No acute abnormality Abdomen and pelvis: Massive constipation and fecal impaction with perforation with free air throughout the abdomen. This report was discussed with Yoshi Marcelo in the emergency room on 08/28/2018 at 10:25 PM and was readback. This exam was performed using automated exposure control, adjustment of mA or kV according to patient size, and/or use of iterative reconstruction technique. Electronically signed by Favio Desai 08/28/2018 10:25 PM) - CONSULTS/PCP/HOSPITALIST Notification #1 *Consult/PCP/Hospitalist*: Radiologist Time Discussed: 22:20 Consult Disposition: other (radiologist states ct showed perforated bowel and free air, reports largest stool burden he's ever seen) #2 Consult: Dr. Noriega Time Discussed: 22:30 Reason/Comments: is coming in to do emergency surgery on pt #3 Consult: [place] Time Discussed: 23:16 Consult Disposition: Admit Departure - Departure Date of Disposition Decision: 08/28/18 Time of Disposition Decision: 22:50 DIAGNOSIS: Rupture of bowel Disposition: ADMITTED INPATIENT 09 Certified Medical Emergency: Emergent Condition: Critical - Critical Care Note This patient required my direct & personal management of CC.: Yes Attestation - Physician/ RENEE Attestation Patient care was provided by Advanced Practice Provider:: No The physician spent face to face time with patient:: Yes Advanced Practice Provider documentation review:: Supervising physician onsite and consulted in the evaluation and care of this patient. The physician did have a face to face encounter with the patient. This chart was documented by the indicated scribe, (Michelle Cruz, Harshad) and accurately reflects the services I performed and decisions made by me, Philip Diego MD, as attested by the provider's signature.
[2018-09-02] MEDS: DILAUDID-HP 30 MG in NS 27 ML IV PRN ×2 (22:54→22:57)
[2018-09-03] MEDS: CLINIMIX E 4.25%-5% SOLUTION 1,000 ML IV SCH ×2 (03:58→15:36)
[2018-09-03] MEDS: HEPARIN SUBQ SCH ×3 (05:41→20:36)
[2018-09-03] MEDS: ZOSYN 3.375 GM in NS 50 ML IV SCH ×4 (05:41→22:30)
[2018-09-03] MEDS: PEPCID IV SCH ×2 (05:48→17:22)
--- NOTE | 2018-09-03 06:36 | GENERAL SURGERY PROGRESS NOTE ---
DATE: 09/03/2018 SUBJECTIVE: Patient seems to be doing okay. He is having ostomy output. OBJECTIVE: Vital Signs: Patient is currently afebrile. His vital signs are stable. General: No acute distress. Cardiovascular: Regular rate and rhythm. Lungs: Grossly clear. Abdomen: Soft, appropriately tender. Ileostomy is functioning. ASSESSMENT AND PLAN: A 53-year-old gentleman, currently postoperative day #5 from a total abdominal colectomy. 1. Postoperative state at this time, the patient seems to have some return of bowel function. We will need to monitor his ileostomy output to make sure he is not getting dehydrated. From a surgical point of view I am going to advance him a regular diet. We will do seem to monitor how he does. If he does continue to have an high ileostomy output, may need to consider Imodium. This was all discussed with the patient. cc: Jairo Noriega MD
[2018-09-03] MEDS: ZOFRAN IV PRN ×3 (06:56→11:53)
[2018-09-03 07:32] LABS: BASO# 0.01 X1000 (0.0-0.2); BASO% 0.2 % (0.0-0.8); EOS# 0.26 X1000 (0.0-0.7); EOS% 4.1 % (0.0-10.0); HEMATOCRIT 27.4 % (42.0-52.0); HEMOGLOBIN 8.8 g/dL (14.0-18.0); IMM GRAN# 0.03 X1000 (0.0-0.04); IMM GRAN% 0.5 % (0.0-0.5); LYMPH# 1.11 X1000 (1.2-3.4); LYMPH% 17.3 % (20.5-51.1); MCH 27.9 PG (27-31); MCHC 32.1 g/dL (33-37); MONO# 0.73 X1000 (0.11-0.59); MONO% 11.4 % (1.7-9.3); MPV 9.4 FL (7.4-10.4); NEUT# 4.27 X1000 (1.4-6.5); NEUT% 66.5 % (42.2-75.2); PLT 278 X1000 (130-400); RBC 3.15 XMIL (4.7-6.1); RDW 12.4 % (11.5-14.5); WBC 6.41 X1000 (4.8-10.8)
[2018-09-03 07:50] LABS: AGAP 11; ALB/GLOB RATIO 0.8; ALBUMIN 2.8 g/dL (3.5-5.0); ALKALINE PHOSPHATASE 84 U/L (32-122); BUN 11 mg/dL (8-22); CALCIUM 8.6 mg/dL (8.8-10.2); CHLORIDE 100 mmol/L (98-107); COSMO 276; CREATININE 0.6 mg/dL (0.7-1.2); ESTIMATED GFR > 60; GLUCOSE 124 mg/dL (70-104); GOT 27 U/L (10-34); GPT 28 U/L (10-44); MAGNESIUM 2.3 mg/dL (1.5-2.7); POTASSIUM 4.5 mmol/L (3.5-5.1); SODIUM 138 mmol/L (136-145); TCO2 27 mmol/L (25-35); TOTAL BILIRUBIN 0.45 mg/dL (0.20-1.00); TOTAL PROTEIN 6.1 g/dL (6.3-8.3)
[2018-09-03] MEDS: PERIDEX MT SCH ×2 (10:21→20:36)
[2018-09-03] MEDS: PHENERGAN IV PRN (15:47)
[2018-09-03] MEDS: LIPOSYN 20% 250 ML IV SCH (20:36)
[2018-09-04] MEDS: CLINIMIX E 4.25%-5% SOLUTION 1,000 ML IV SCH ×4 (01:29→18:03)
[2018-09-04] MEDS: DILAUDID-HP 30 MG in NS 27 ML IV PRN (03:32)
[2018-09-04] MEDS: ZOSYN 3.375 GM in NS 50 ML IV SCH ×4 (05:21→23:26)
[2018-09-04] MEDS: HEPARIN SUBQ SCH ×3 (05:21→23:26)
[2018-09-04] MEDS: PEPCID IV SCH ×2 (05:21→17:00)
[2018-09-04 06:05] LABS: BASO# 0.03 X1000 (0.0-0.2); BASO% 0.3 % (0.0-0.8); EOS# 0.37 X1000 (0.0-0.7); EOS% 4.1 % (0.0-10.0); HEMATOCRIT 31.5 % (42.0-52.0); HEMOGLOBIN 10.1 g/dL (14.0-18.0); IMM GRAN# 0.06 X1000 (0.0-0.04); IMM GRAN% 0.7 % (0.0-0.5); LYMPH# 1.43 X1000 (1.2-3.4); LYMPH% 15.8 % (20.5-51.1); MCH 27.9 PG (27-31); MCHC 32.1 g/dL (33-37); MONO# 0.82 X1000 (0.11-0.59); MONO% 9.1 % (1.7-9.3); MPV 9.4 FL (7.4-10.4); NEUT# 6.34 X1000 (1.4-6.5); PLT 349 X1000 (130-400); RBC 3.62 XMIL (4.7-6.1); RDW 12.8 % (11.5-14.5); WBC 9.05 X1000 (4.8-10.8)
[2018-09-04 06:40] LABS: AGAP 10; ALB/GLOB RATIO 0.9; ALKALINE PHOSPHATASE 113 U/L (32-122); BUN 14 mg/dL (8-22); CALCIUM 8.7 mg/dL (8.8-10.2); CHLORIDE 99 mmol/L (98-107); COSMO 275; CREATININE 0.7 mg/dL (0.7-1.2); ESTIMATED GFR > 60; GLUCOSE 141 mg/dL (70-104); GOT 44 U/L (10-34); GPT 61 U/L (10-44); POTASSIUM 4.6 mmol/L (3.5-5.1); SODIUM 136 mmol/L (136-145); TCO2 27 mmol/L (25-35); TOTAL BILIRUBIN 0.43 mg/dL (0.20-1.00); TOTAL PROTEIN 6.5 g/dL (6.3-8.3)
--- NOTE | 2018-09-04 07:20 | GENERAL SURGERY PROGRESS NOTE ---
DATE: 09/04/2018 SUBJECTIVE: Patient seems to be doing well. No major issues. He is having ileostomy output. OBJECTIVE: Vital Signs: Patient is currently afebrile. His vital signs are stable. General: No acute distress. Cardiovascular: Regular rate and rhythm. Lungs: Grossly clear. Abdomen: Soft, appropriately tender. Ileostomy is functioning. ASSESSMENT AND PLAN: A 53-year-old gentleman currently postoperative day #6 from total abdominal colectomy. Postoperative state. At this time patient seems to be having return of bowel function. His ileostomy output has only been around 500 for the day which is reasonable. He is on a regular diet. Hopefully, we can continue to monitor him for his ileostomy output. We will keep his drains in place in his pelvis until essentially followup but they are not draining that much at this point. We will remove his Norton catheter and see how he does. cc: Jairo Noriega MD
[2018-09-04] MEDS: PERIDEX MT SCH ×2 (09:02→23:26)
--- NOTE | 2018-09-04 15:34 | PROGRESS NOTE ---
DATE: 09/04/2018 SUBJECTIVE: Patient reports feeling fine. Patient reports some soreness in the lower back. No other complaints noted. OBJECTIVE: Vital Signs: Temperature 99, heart rate 81, respiratory rate 19, and blood pressure 119/68. O2 saturation 100% on room air. General: This is a 53-year-old male lying in bed in no acute distress. Cardiovascular: S1, S2 heard. No murmurs, gallops, or rubs. Regular rate and rhythm. Respiratory: Clear bilaterally to auscultation. No work of breathing or using accessory muscles. Abdomen: Soft. A little bit distended. Appropriately tender to palpation. Ileostomy on the right side. It looks stable. Extremities: No clubbing, cyanosis, or edema. Peripheral present in both legs. Neurological: Patient alert and oriented x3. Moves 4 extremities. LABORATORY DATA: White cell count 9.05, hemoglobin 10.1, hematocrit 31.5 and platelets 349,000. Normal BMP. ASSESSMENT AND PLAN: 1. Perforated bowel secondary to severe constipation, colonic dysmotility status post exploratory laparotomy with open total abdominal colectomy and ileostomy postoperative day #5. General surgery Dr. Noriega is following this patient. Clinically, he is doing good. NG tube and Norton catheter have been removed. Will follow recommendations from General Surgery. 2. Chronic pain syndrome with chronic methadone use. The patient is using PRODUCTION OPERATIONS ENGINEER pump. I am not planning to increase the doses of any of his pain medication at this point. 3. Hyperglycemia with blood sugars slightly elevated. We will continue to monitor. 4. Tobacco use. Patient again advised to stop smoking tobacco. 5. Normocytic anemia. Better. We will continue to monitor CBC. 6. Disposition. We will continue to monitor this patient closely. cc: MD BOZENA Zambrano
[2018-09-04] MEDS: NS 1,000 ML IV SCH ×2 (16:58→17:14)
[2018-09-04] MEDS: SODIUM CHLORIDE 0.9% INJ PRN (17:00)
[2018-09-04] MEDS: LIPOSYN 20% 250 ML IV SCH (17:03)
[2018-09-05] MEDS: ZOSYN 3.375 GM in NS 50 ML IV SCH ×3 (04:11→20:37)
[2018-09-05] MEDS: CLINIMIX E 4.25%-5% SOLUTION 1,000 ML IV SCH ×2 (04:11→15:22)
[2018-09-05] MEDS: HEPARIN SUBQ SCH ×3 (05:02→20:37)
[2018-09-05] MEDS: PEPCID IV SCH ×2 (05:03→18:22)
--- NOTE | 2018-09-05 06:33 | GENERAL SURGERY PROGRESS NOTE ---
DATE: 09/05/2018 SUBJECTIVE: Patient doing well, no major issues. He was transferred rooms. He has tolerated his regular diet. OBJECTIVE: Vital Signs: Patient is currently afebrile. His vital signs stable. General: No acute distress. Cardiovascular: Regular rate and rhythm. Lungs: Grossly clear. Abdomen: Soft, appropriately tender. Ileostomy functioning. ASSESSMENT AND PLAN: A 53-year-old gentleman, currently postoperative day #7 of total abdominal colectomy. Postoperative state at this time, patient has had return of bowel function. He has been having ostomy output. Does not seem excessive, I do not think we need to slow it down. At this point, I will get the nurses to call the methadone clinic to get his home dose of methadone so we can transition him off the COAT ROOM ATTENDANT and put him on the methadone. I will keep his Jesus-Campbell drain until he comes and sees me in the office, but the output has been very minimal. I think we are looking at being able to discharge him here in the very near future, if not the next 24 to 48 hours. cc: Jairo Noriega MD
[2018-09-05] MEDS: LIPOSYN 20% 250 ML IV SCH ×2 (06:55→18:22)
[2018-09-05] MEDS ORDERED: METHADONE LIQUID PO SCH (09:30)
[2018-09-05] MEDS ORDERED: METHADONE PO SCH (11:00)
[2018-09-05] MEDS: PHENERGAN IV PRN ×2 (13:41→22:10)
[2018-09-05] MEDS: PERIDEX MT SCH ×2 (13:46→20:37)
--- NOTE | 2018-09-05 15:03 | PROGRESS NOTE ---
DATE: 09/05/2018 SUBJECTIVE: Patient reports feeling pain. Patient has been discontinued from YARN WINDER pump. OBJECTIVE: Vital Signs: Temperature 98.5 degrees, heart rate 70, respiratory rate 20, blood pressure 130/75, O2 saturation 99% on room air. General examination: This is a 53-year-old male, lying in bed in no acute distress. Cardiovascular exam: S1, S2 heard. No murmurs, gallops, or rubs. Regular rate and rhythm. Respiratory exam: Clear bilaterally to auscultation. No work of breathing or using accessory muscles. Abdomen: Soft. A little bit distended, but appropriately tender to palpation. Ileostomy on the right side looking good. Extremities: No clubbing, cyanosis, or edema. Peripheral pulses present in both legs. Neurological exam: The patient is alert and oriented x3. Moves 4 extremities. LABORATORY DATA: There are no labs from today. ASSESSMENT/PLAN: 1. Perforated bowel secondary to severe constipation and colonic dysmotility status post exploratory laparotomy with open total abdominal colectomy and end-ileostomy, postoperative day #6. Dr. Noriega is following this patient. He thinks this patient is doing good. He has discontinued YARN WINDER pump. He had return of bowel function. At this point, methadone clinic has recommended for this patient to restart his methadone slowly. He has been on 140 mg of methadone for 5 to 7 years. They have recommended to start with 30 and increase 10 mg daily until he reaches his basal doses. We will follow recommendations from methadone clinic. He is able to walk around. I think this patient is definitely improving and, from a surgical standpoint, he may be discharged in the next 24 to 48 hours. 2. Chronic pain syndrome with chronic methadone use as we mentioned above. 3. Tobacco abuse. Patient advised to stop smoking cigarettes. 4. Normocytic anemia. Hemoglobin is stable. We will continue to monitor. DISPOSITION: Most likely patient will be discharged tomorrow morning. cc: Nathan Roberts MD
[2018-09-05] MEDS: NS 1,000 ML IV SCH (15:23)
[2018-09-06] MEDS: ZOSYN 3.375 GM in NS 50 ML IV SCH ×2 (02:54→07:49)
[2018-09-06] MEDS: CLINIMIX E 4.25%-5% SOLUTION 1,000 ML IV SCH (02:57)
[2018-09-06] MEDS: PEPCID IV SCH (04:39)
[2018-09-06] MEDS: HEPARIN SUBQ SCH (04:39)
[2018-09-06] MEDS ORDERED: METHADONE PO SCH (05:00)
--- NOTE | 2018-09-06 06:04 | GENERAL SURGERY PROGRESS NOTE ---
DATE: 09/06/2018 SUBJECTIVE: Patient doing well. He is back on his back on methadone, off his COAT AGENT. OBJECTIVE: Vital Signs: Patient is currently afebrile. His vital signs stable. General: No acute distress. Cardiovascular: Regular rate and rhythm. Lungs: Grossly clear. Abdomen: Soft, appropriately tender. Incision inspected with healing. Ostomy is functioning. SHAQUILLE drains still with some serous drainage, but only minimal. ASSESSMENT AND PLAN: A 53-year-old gentleman, currently postoperative day number 8 from total abdominal colectomy. Postoperative state. At this time, patient is doing well. He is off of the COAT AGENT. I think from a surgical point of view, we could probably discharge him today. Need to see him back in the office early next week to remove his drains and look at his incision, but otherwise, the patient is doing well and met all requirements to be discharged from a surgical point of view. cc: Jairo Noriega MD
[2018-09-06 11:27] VITALS: BP 116/74
[2018-09-07] MEDS ORDERED: METHADONE PO SCH (05:00)
--- NOTE | 2018-09-07 08:57 | DISCHARGE SUMMARY ---
ADMISSION DATE: 08/29/2018 DISCHARGE DATE: 09/06/2018 ADMITTING DIAGNOSES: 1. Massive constipation with perforated bowel. 2. Nausea. 3. Chronic pain syndrome with chronic methadone use. 4. Hyperglycemia. DISCHARGE DIAGNOSES: 1. Bowel perforation secondary to severe constipation and colonic dysmotility, status post exploratory laparotomy with open total abdominal colectomy and end ileostomy, currently on postop day 7. 2. Chronic pain syndrome with chronic methadone use. 3. Tobacco abuse. Advised to stop smoking. Smoking cessation discussed for at least 3 minutes to 6 minutes, and he has no wishes to quit. 4. Normocytic anemia. Hemoglobin stable. 5. Hyperglycemia on admission. Hemoglobin A1c was 5.1, and he stabilized out with his blood glucose levels. CONSULTATIONS: 1. General Surgery, Dr. Jairo Noriega. 2. PICC line consultation for placement. 3. Wound Care consult. SURGERIES OR PROCEDURES: On 08/29/2018, the patient underwent exploratory laparotomy with open total abdominal colectomy and end ileostomy due to perforated bowel secondary to severe constipation and colonic dysmotility inertia, performed by Dr. Jairo Noriega. Complications were none. He had 2 round 19-English drains placed during surgery. HOSPITAL COURSE: On 08/28/2018, the evening of, the patient presented with complaints of abdominal pain. Imaging revealed that he had massive constipation, fecal impaction with perforation and free air throughout the abdomen, so Dr. Noriega was emergently consulted, and the patient went for urgent emergent surgery at around 3 or 4 a.m. on 08/29/2018, the next day after presenting. Postoperatively, he was placed on RIP SAW OPERATOR pump for pain control as he has chronic pain syndrome with chronic methadone use with an NG tube that was in place, and his abdomen was slightly distended without bowel sounds. The drains were working. Ileostomy was good, and the dressing was clean. General Surgery postoperatively felt like there was going to at least be some degree of an ileus due to the fact that he had come in with bowel obstruction. Immediately after surgery, he went postoperatively to the ICU, and it was felt that if he did not have good function of bowels to return in the next couple of days after surgery, that he would need a PICC line and TPN. He was going to have a PICC line placed on 08/31/2018, but the patient refused at that time. On 08/31/2018, a chest x-ray was performed, and it said atelectasis for left lower lobe pneumonia, but he was on room air. His white count was down to normal and did not receive antibiotics. On 09/02/2018, the patient started to develop flatus and stool into the ileostomy bag, and the NG tube was removed, as the ileus had resolved. As ileostomy started to have movements, it also had quite a decent amount, and had to be watched to make sure he would not dehydrate, and Imodium was considered. He was advanced from a clear liquid to a regular diet by 09/03/2018. Norton catheter was removed on 09/04/2018. The output from the ileostomy was not too excessive, so there was no need for Imodium, and on 08/31/2018, he was transitioned off the RIP SAW OPERATOR back onto the methadone. He was going to keep his SHAQUILLE drain until he was seen by General Surgery as an outpatient. Today, he is back on his methadone. His RIP SAW OPERATOR was off. His ileostomy was draining. His Norton catheter had been removed. He was having good management of his pain. No complications and deemed appropriate for discharge and okay by surgical point of view. DISCHARGE VITAL SIGNS: Temperature is 98.4, heart rate 74, respiratory rate 18, blood pressure 116/74, O2 saturation 99% on room air. DISCHARGE LAB DATA: White blood cells 9000, hemoglobin 10, hematocrit 31, platelet count 349. Sodium is 136, potassium 4.6, BUN is 14, creatinine 0.7, glucose 141, calcium 8.7, bilirubin 0.43, AST is 44, ALT is 61, albumin is 3.0. These were performed on 09/04/2018. PERTINENT IMAGING: On 08/28/2018, chest, abdomen and pelvis CT performed, and the chest had no acute abnormalities. Abdomen and pelvis showed massive constipation and fecal impaction with perforation and free air throughout the abdomen. On 08/31/2018, a chest x-ray showed atelectasis versus pneumonia of the left lower lobe but was likely atelectasis, as there was no sign of infection, and no antibiotics were started. DISCHARGE DIET: Regular. DISCHARGE ACTIVITY: As tolerated. DISCHARGE MEDICATIONS: Methadone as directed and to follow up with methadone clinic. DISCHARGE FOLLOWUP: Follow up with Dr. Jairo Noriega in 1 week where he will have his SHAQUILLE drain removed. DISCHARGE INSTRUCTIONS: May clean SHAQUILLE site with antibacterial soap and sterile water. If there is any sign of symptom of infection or any sign or symptom of severe bloating in the abdomen or no stool coming from the ileostomy, to contact General Surgery or to seek medical attention through the emergency department. Other instructions are no driving until directed by the physician, no driving while taking pain medication, no heavy lifting, and to keep the incision clean and dry. Other changes to report or to seek medical attention for is for shortness of breath, increased fatigue, excessive bleeding, unexplained weight loss or gain, unmanageable pain or any other signs or symptoms of infection such as fever, chills or redness at the surgical site. DISCHARGE DISPOSITION: Home. Dictated by SANA Barillas for Nathan Roberts MD cc: SANA Barillas MD
[2018-09-08] MEDS ORDERED: METHADONE PO SCH (05:00)
[2018-09-09] MEDS ORDERED: METHADONE PO SCH (05:00)
[2018-09-10] MEDS ORDERED: METHADONE PO SCH (05:00)
[2018-09-11] MEDS ORDERED: METHADONE PO SCH (05:00)
[2018-09-12] MEDS ORDERED: METHADONE PO SCH (05:00)
[2018-09-13] MEDS ORDERED: METHADONE PO SCH (05:00)
[2018-09-14] MEDS ORDERED: METHADONE PO SCH (05:00)
[2018-09-15] MEDS ORDERED: METHADONE PO SCH (05:00)
[2018-09-16] MEDS ORDERED: METHADONE PO SCH (05:00)
[2018-09-17] MEDS ORDERED: METHADONE PO SCH (05:00)
== END 2018-09-06 15:18 | disposition home or self-care (01) | DRG 329 ==
LOC: ED 21:47 → DSC 08-29 00:16 → ICU 08-29 04:22 → SUATTDRO 08-29 04:22 → 4N 08-30 10:49
PROVIDERS: ATTEND Internal Medicine
CPT/HCPCS: 36569; 36584; 51702; 71010; 71045; 71260; 74177; 80048; 80053; 80061; 81001; 83036; 83690; 83735; 84100; 84443; 85025; 85610; 85730; 86140; 86850; 86900; 86901; 87040; 88307; 93005; 93010; 94760; 94761; 96361; 96365; 96375; 96376; 97162; 97530; 99285; A9270; J0330; J0360; J1170; J1644; J2250; J2270; J2405; J2543; J2550; J3010; J7030; J7050; J7120; Q9967; S0028; S0109